=== PATIENT | female | born 1975 | race Caucasian/White ===

== ENCOUNTER 2018-02-18 08:47 | Emergency (ER) | payer OTHER ==
[~2018-02-18] VITALS: Ht 160 cm; Wt 86.2 kg
[2018-02-18 09:00] VITALS: BP 124/77
--- NOTE | 2018-02-18 09:05 | NUR ---
PT. CAME INTO THE ED DUE TO R HIP PAIN X 1 DAY. PT. STATES " YETERDAY I WAS SITTING ONMY BED FOR A WHILE AND WHEN I GOT UP TO WALK TO THE KITCHEN IT STARTED HURTING REALLY BAD, I DONT KNOW IF IT WAS MAYBE HOW I WAS SITTING". 10/ STABBING TINGLING PAIN THAT RADIATES FROM R HIP/ THIGH DOWN HER R LEG. PT. DENIES ANY INJURY OR FALL. NO BRUISING OR DEFORMITY NOTED TO R THIGH OR LEG. PT. HAS CANE PRESENT BUT HAS UNSTEADY GAIT UPON AMBULATION.CAP REFILL LESS THAN 3 SEC ON R TOE, SENSATION INTACT. ER MD NOTIFIED.SAFETY PRECAUTIONS INITIATED. AT BEDSIDE. WILL CONTINUE TO MONITOR.
[2018-02-18] MEDS ORDERED: IBUPROFEN 600 MG TAB PO ONE (09:30)
--- NOTE | 2018-02-18 09:36 | NUR ---
XRAY AT BEDSIDE AT THIS TIME.
--- NOTE | 2018-02-18 10:20 | NUR ---
PT. RESTING COMFORTABLY IN BED AT THIS TIME, RR EVEN AND UNLABORED. BED IN LOWEST POSITION. CALL LIGHT WITHIN REACH WILL CONTINUE TO MONITOR.
[2018-02-18 11:06] VITALS: BP 119/77
--- NOTE | 2018-02-18 11:06 | NUR ---
Patient discharged with v/s stable. Written and verbal after care instructions given and explained. Patient alert, oriented and verbalized understanding of instructions. Ambulatory with steady gait. All questions addressed prior to discharge. ID band removed. Patient advised to follow up with PMD. Rx of ibuprofen 600mg and gabapentin 100mg given.Pt. provided with cd and xray report. Patient educated on indication of medication including possible reaction and side effects. Opportunity to ask questions provided and answered.
== END 2018-02-18 11:04 | disposition home or self-care (01) ==
LOC: MED 08:47
DX: M25.551 Pain in right hip (principal); M79.651 Pain in right thigh; E11.9 Type 2 diabetes mellitus without complications
CPT/HCPCS: 73502; 82948; 99284; Q0092; 99285

== ENCOUNTER 2018-03-28 23:11 | Inpatient (IN) | payer OTHER ==
[~2018-03-28] VITALS: Ht 162.6 cm; Wt 85.3 kg
[2018-03-28 23:19] VITALS: BP 102/81
--- NOTE | 2018-03-28 23:19 | NUR ---
TO BED # 8 AMBULATORY, REPORT GIVEN TO JOSE DAVID MAST
--- NOTE | 2018-03-28 23:20 | NUR ---
PT PRESENTED ER WITH C/O PAIN TO THE RIGHT ARM DUE TO PICC LINE X 1 DAY. PT STATED SHE WAS ADMITTED TO [facility] FROM 03/03 - 03/27. PT HAS A HX OF LEUKEMIA AND BILATERAL HIP REPLACEMENTS. PT STATED HER LEUKEMIA IS OUT OF INTERMISSION AT THIS TIME. PT HAS BRUISING IN BILATERAL ARMS DUE TO LOW PLATELETS; UPON ASSESSMENT, NO REDNESS AND OR SWELLING TO PICC LINE SITE. NO DISCHARGE. SKIN IS PINK/WARM/DRY; AAOX4 WITH EVEN AND STEADY GAIT; PATIENT STATES PAIN OF 9/10 AT THIS TIME; VSS; PATIENT POSITIONED FOR COMFORT; HOB ELEVATED; BEDRAILS UP X2; BED DOWN. ER MD MADE AWARE OF PT STATUS.
--- NOTE | 2018-03-29 00:11 | NUR ---
Dr. Evans evaluating patient at bedside.
--- NOTE | 2018-03-29 01:05 | NUR ---
PT SITTING UP IN BED, SON AT BEDSIDE. VITALS STABLE
[2018-03-29 01:59] LABS: HEMATOCRIT 24.8 % (36-48); HEMOGLOBIN 8.5 g/dL (12.0-16.0); LYMPHOCYTES # (AUTO) 1.1 K/uL (2.5-16.5); MEAN CORPUSCULAR HEMOGLOBIN 30 pg (27-31); MEAN CORPUSCULAR HGB CONC 34 g/dL (33-37); MEAN CORPUSCULAR VOLUME 85.9 fL (80-94); MONOCYTES % (AUTO) 1.7 % (1.7-9.3); NEUTROPHILS # (AUTO) 0.6 K/uL (1.8-7.7); NEUTROPHILS % (AUTO) 33.2 % (42.2-75.2); PLATELET COUNT (AUTO) 84 K/uL (140-450); RED BLOOD CELL COUNT(AUTO) 2.89 MIL/uL (4.20-5.40); RED CELL DISTRIBUTION WIDTH 13.3 % (11.6-13.7)
[2018-03-29 02:01] LABS: ANION GAP 8.5 (8-16); CARBON DIOXIDE 25.2 mmol/L (21-32); CREATININE 0.9 mg/dL (0.6-1.3); POTASSIUM 3.7 mmol/L (3.5-5.1)
[2018-03-29 02:07] LABS: WHITE BLOOD COUNT (AUTO) 1.7 K/uL (4.8-10.8)
[2018-03-29 02:08] LABS: LYMPHOCYTES % (AUTO) 65.1 % (20.5-51.1)
--- NOTE | 2018-03-29 02:45 | NUR ---
Patient discharged with v/s stable. Written and verbal after care instructions given and explained. Patient verbalized understanding. Ambulatory with steady gait. All questions addressed prior to discharge. Advised to follow up with PMD.
--- NOTE | 2018-03-29 03:00 | NUR ---
PT CALLED BACK TO ER FOR ABNORMAL, OFFICIAL RADIOLOGIST REPORT. MD SAMANO NOTIFIED. PT RETURNED AT THIS TIME AND AMBULATED TO BED 8 W/ STEADY GAIT.
--- NOTE | 2018-03-29 03:02 | NUR ---
Dr. Evans re-evaluating patient at bedside.
[2018-03-29] MEDS ORDERED: MORPHINE SULFATE 4 MG/ML SYR IVP ONE (03:40)
[2018-03-29] MEDS ORDERED: ONDANSETRON 4 MG/2 ML VIAL IVP ONE (03:40)
--- NOTE | 2018-03-29 03:40 | NUR ---
PT REQUESTING SOMETHING FOR PAIN, LEVEL 10/10. MD MADE AWARE OF STATUS.
[2018-03-29] MEDS ORDERED: LOVENOX 1MG/KG Q12H SUBQ SCH (04:45)
[2018-03-29] MEDS ORDERED: ACYC400T PO (04:46)
[2018-03-29] MEDS ORDERED: ATOR10TA PO (04:54)
[2018-03-29] MEDS ORDERED: INSU100S22 SUBQ (05:04)
[2018-03-29] MEDS ORDERED: GABA-636 PO (05:04)
[2018-03-29] MEDS ORDERED: INSU-1163 SQ (05:04)
[2018-03-29] MEDS ORDERED: LISI2.5T12 PO (05:11)
[2018-03-29] MEDS ORDERED: MEDR10TA PO (05:11)
[2018-03-29] MEDS ORDERED: PANT40EC PO (05:11)
[2018-03-29] MEDS ORDERED: PRED20TA5 PO (05:11)
[2018-03-29] MEDS ORDERED: HUMSLIDE SUBQ (05:18)
--- NOTE | 2018-03-29 05:30 | NUR ---
ADMITTED PT FROM ER VIA WHEELCHAIR. DX: DVT RIGHT UPPER ARM. AAOX4. NO C/O PAIN OR SOB. ON ROOM AIR. CLEAR LUNG SOUNDS. SKIN INTACT. IV TO LEFT AC #20G, PATENT AND INTACT. ORIENTED PT TO ROOM. DISCUSSED PLAN OF CARE, PT VERBALIZED UNDERSTANDING. PT IS ON NEUTROPENIC PRECAUTION.
--- NOTE | 2018-03-29 05:30 | NUR ---
PICC LINE REMOVED PER ER MD, TOLERATED WELL.
--- NOTE | 2018-03-29 05:35 | NUR ---
Patient will be admitted to care of DR. PETERSEN. Admited to MEDICAL SURGICAL. Will go to room. Belongings list completed. Report to ROBBIE MAST.
--- NOTE | 2018-03-29 05:35 | NUR ---
Pt report given to ROBBIE MAST. Transfer of care at this time. VITALS STABLE.
[2018-03-29 05:40] VITALS: BP 106/68
--- NOTE | 2018-03-29 05:40 | NUR ---
ER NURSE REMOVED PT'S PICC LINE TO RIGHT UPPER ARM. DRESSING APPLIED TO IV SITE. PT DENIES PAIN OR SOB.
--- NOTE | 2018-03-29 06:00 | NUR ---
MST CHARGE NURSE SPOKE WITH ER CHARGE NURSE. PER ER CHARGE NURSE, ER DOCTOR CANCELLED LOVENOX.
--- NOTE | 2018-03-29 07:25 | NUR ---
ENDORSED PT TO DAY SHIFT NURSE. PT IN STABLE CONDITION.
--- NOTE | 2018-03-29 07:26 | NUR ---
RECEIVED REPORT FROM MANAGER DEPARTMENT NURSE. PATIENT LYING IN BED COMFORTABLY. NO DISTRESS NOTED. PAIN WITHIN TOLERABLE AT THIS TIME. AAOX4, CALM, COOPERATIVE, SKIN COLOR APPROPRIATE TO ETHNICITY, WARM TO TOUCH. SKIN INTACT. HAS RIGHT UPPER ARM AXILLARY DVT, ARM HAS NON-PITTING EDEMA AND INCREASED WARMTH UPON TOUCH. IV SITE INTACT, PATENT, ON SALINE LOCK. ABDOMEN SOFT, NON-DISTENDED. REVIEWED PLAN OF CARE WITH PATIENT. PATIENT VERBALIZED UNDERSTANDING. SAFETY MEASURES IN PLACE, CALL LIGHT WITHIN REACH. WILL CONTINUE TO MONITOR.
[2018-03-29 08:00] VITALS: BP 125/72
--- NOTE | 2018-03-29 08:11 | NUR ---
PATIENT HAS BEEN SCREENED AND CATEGORIZED MODERATE NUTRITION RISK. PATIENT WILL BE SEEN WITHIN 3-5 DAYS OF ADMISSION. 03/31/18 04/02/[address]
--- NOTE | 2018-03-29 09:30 | NUR ---
PATIENT SITTING IN BED WATCHING TV. DR. PETERSEN AT BEDSIDE REVIEWING PLAN OF CARE WITH PATIENT. WILL CONTINUE TO MONITOR.
[2018-03-29] MEDS ORDERED: INSULIN LISPRO SLIDING SCALE 100 UNITS/ML VIAL SUBQ PRN (10:20)
[2018-03-29] MEDS ORDERED: DEXTROSE 50% 50 ML SYR IVP PRN (10:20)
[2018-03-29] MEDS ORDERED: APIX5TAB PO (10:27)
[2018-03-29] MEDS ORDERED: BLOOD GLUCOSE MONITORING 1 DEV DEV FS SCH (11:30)
--- NOTE | 2018-03-29 11:35 | NUR ---
I RECEIVED A CALL THIS AM FROM ADITI MAST. SHE WAS ASKED BY DR. PETERSEN IF WE HAD DISCOUNT COUPON FOR ELIQUIS PO. THE PATIENT HAS [facility]. I CALL [facility] , [phone] AND SPOKE WITH MAIRSELA. HE LOOKED UP THE PATIENT AND HE SAID ELIQUIS IS COVERED, NO CO PAY. THE DOCTOR NEEDS TO WRITE ON THE PRESCRIPTION THE REASON FOR THE MEDICATION, ONLY FOR DVT OR PE. I WENT THE FLOOR AND SPOKE WITH DR. PETERSEN AND INFORMED HIM. ADMISSION CHART REVIEW DONE FAXED INITIAL REVIEW TO [facility] [phone] PHONE JOSH [phone].
--- NOTE | 2018-03-29 12:30 | NUR ---
DISCHARGE INSTRUCTIONS PROVIDED TO PATIENT IN PREFERRED LANGUAGE OF TONGAN, FOLLOW-UP VISIT WITH PCP AND ONCOLOGIST, NEW/CHANGED MEDICATION REGIMEN, DIET REGIMEN, AND DISEASE PROCESS/MANAGEMENT OF DVT. ANSWERED ALL OF PATIENT'S QUESTIONS REGARDING DISCHARGE. PATIENT VERBALIZED COMPLETE UNDERSTANDING. PATIENT TO GET DRESSED AND THEN READY TO GO HOME VIA SELF DRIVE.
--- NOTE | 2018-03-29 12:45 | NUR ---
PATIENT SITTING IN BED EATING LUNCH BEFORE GOING HOME. WILL CONTINUE TO MONITOR.
[2018-03-29] MEDS ORDERED: GABAPENTIN 100 MG CAP PO SCH (13:00)
--- NOTE | 2018-03-29 13:00 | NUR ---
PATIENT ALL DRESSED UP AND READY TO GO HOME. IV SITE REMOVED WITH MINIMAL BLOOD AND LUMEN COMPLETELY INTACT. ID BANDS REMOVED. ESCORTED PATIENT DOWN TO LOBBY VIA AMBULATION. PATIENT DISCHARGED AT THIS TIME IN STABLE CONDITION TO HOME VIA SELF DRIVE.
[2018-03-29] MEDS ORDERED: PANTOPRAZOLE 40 MG TABEC PO SCH (16:30)
[2018-03-29] MEDS ORDERED: ACYCLOVIR 200 MG CAP PO SCH (21:00)
[2018-03-29] MEDS ORDERED: APIXABAN 2.5 MG TAB PO SCH (21:00)
[2018-03-30] MEDS ORDERED: predniSONE 20 MG TAB PO SCH (09:00)
[2018-03-30] MEDS ORDERED: LISINOPRIL 5 MG TAB PO SCH (09:00)
[2018-03-30] MEDS ORDERED: ATORVASTATIN 20 MG TAB PO SCH (09:00)
[2018-03-30] MEDS ORDERED: LISINOPRIL 10 MG TAB PO SCH (09:00)
== END 2018-03-29 13:00 | disposition home or self-care (01) | DRG 206 ==
LOC: MED 23:11 → MTU 03-29 04:48
PROVIDERS: ADMIT Internal Medicine; ATTEND Internal Medicine
PROC: 02PYX3Z Removal of Infusion Device from Great Vessel, External Approach (ICD-10-PCS; principal; 2018-03-29)
DX: T82.868A Thrombosis due to vascular prosthetic devices, implants and grafts, initial encounter (principal); D61.818 Other pancytopenia; I82.A11 Acute embolism and thrombosis of right axillary vein; E87.1 Hypo-osmolality and hyponatremia; Z96.643 Presence of artificial hip joint, bilateral; G89.29 Other chronic pain; E11.65 Type 2 diabetes mellitus with hyperglycemia; Y83.8 Other surgical procedures as the cause of abnormal reaction of the patient, or of later complication, without mention of misadventure at the time of the procedure; Z79.4 Long term (current) use of insulin; Z79.899 Other long term (current) drug therapy; Z92.21 Personal history of antineoplastic chemotherapy; Z85.6 Personal history of leukemia; Y92.89 Other specified places as the place of occurrence of the external cause
CPT/HCPCS: 36415; 80048; 82948; 85025; 93971; 96374; 96375; 99284; 99285; J2270; J2405; Q0092

== ENCOUNTER 2018-03-29 22:39 | Emergency (ER) | payer OTHER ==
[~2018-03-29] VITALS: Ht 162.6 cm; Wt 85.7 kg
[~2018-03-29 22:39] MED LIST: ACYC400T PO; APIX5TAB PO; ATOR10TA PO; GABA-636 PO; HUMSLIDE SUBQ; INSU-1163 SQ; INSU100S22 SUBQ; LISI2.5T12 PO; MEDR10TA PO; PANT40EC PO; PRED20TA5 PO
[2018-03-29 22:43] VITALS: BP 116/70
--- NOTE | 2018-03-29 22:43 | NUR ---
TO BED # 11 AMBULATORY, REPORT GIVEN TO MAXWELL MAST
--- NOTE | 2018-03-29 23:00 | NUR ---
42/F CAME IN WITH FAMILY FOR MEDICATION SUBSTITUTION. PT WAS D/C'ED TODAY FOR R ARM DVT, REPORTS R UPPER ARM PICC LINE WAS ALSO REMOVED. PT WAS GIVEN RX ELIQUIS 5MG PO BID BUT PT COULD NOT POULTRY FARMWORKER RX BECAUSE HER INSURANCE DOES NOT COVER THE RX. PT DENIES CP, SOB, N/V. PT AOX4, AMBULATORY, RR EVEN AND UNLABORED. HX LEUKEMIA IN REMISSION, DM, BL HIP REPLACEMENT.
[2018-03-29] MEDS ORDERED: APIXABAN 2.5 MG TAB PO SCH (23:20)
--- NOTE | 2018-03-29 23:26 | NUR ---
AWAITING D/C PAPERWORK FROM RASHEEDA GOMEZ
--- NOTE | 2018-03-29 23:30 | NUR ---
ELIQUIS NOT AVAILABLE FROM [facility], CALLED [facility]
--- NOTE | 2018-03-29 23:46 | NUR ---
PER PERSONAL BANKING ADVISOR, DAMON NOT AVAILABLE FROM HOSPITAL. ER MADE AWARE.
[2018-03-30] MEDS ORDERED: RIVAROXABAN 15 MG TAB PO ONE (00:25)
--- NOTE | 2018-03-30 00:50 | NUR ---
PER BRACE END MAINSPRING FORMER, LEELA NOT AVAILABLE IN HOSPITAL. ON-CALL PHARMACIST ON THE WAY. ER MADE AWARE.
[2018-03-30 01:30] VITALS: BP 121/67
--- NOTE | 2018-03-30 01:30 | NUR ---
Patient discharged with v/s stable. Written and verbal after care instructions given and explained. Patient alert, oriented and verbalized understanding of instructions. Ambulatory with steady gait. All questions addressed prior to discharge. ID band removed. Patient advised to follow up with PMD. Rx of Xarelto given. Patient educated on indication of medication including possible reaction and side effects. Opportunity to ask questions provided and answered.
== END 2018-03-30 01:30 | disposition home or self-care (01) ==
LOC: MED 22:39
DX: E11.9 Type 2 diabetes mellitus without complications (principal); Z76.0 Encounter for issue of repeat prescription; Z79.899 Other long term (current) drug therapy
CPT/HCPCS: 99283

== ENCOUNTER 2019-02-04 19:47 | Inpatient (IN) | payer MEDICAID, OTHER ==
[~2019-02-04] VITALS: Ht 157.5 cm; Wt 78.9 kg
[2019-02-04 19:50] VITALS: BP 123/68
--- NOTE | 2019-02-04 19:50 | NUR ---
TO BED # 01 AMBULATORY
[2019-02-04] MEDS ORDERED: NACL 0.9% 1,000 ML IV ONE (20:00)
--- NOTE | 2019-02-04 20:00 | NUR ---
43 Y/O FEMALE PRESENTS TO ED, C/O VAGINAL BLEEDING. PT STATES SHE HAS INCREASED VAGINAL BLEEDING THIS MORNING. BLEEDING HAS BEEN ON GOING FOR THE SEVERAL WEEKS BUT INCREASED TODAY, SATURATES WITH BLOOD 1 PAD/HR. PT STATES SHE HAS AN APPT WITH PCP ON NEXT THURSDAY BUT WAS ADVISED TO GO TO ED IF BLEEDING WORSENS. PT HAS HX OF LEUKEMIA CURRENTLY ON REMISSION. PT VSS. ERMD AWARE. WILL CONTINUE TO MONITOR.
[2019-02-04 20:57] LABS: BASOPHILS % (AUTO) 0.1 % (0.0-2.0); EOSINOPHILS % (AUTO) 0.3 % (0.0-4.0); LYMPHOCYTES # (AUTO) 1.8 K/uL (2.5-16.5); LYMPHOCYTES % (AUTO) 17.1 % (20.5-51.1); MEAN CORPUSCULAR HEMOGLOBIN 35 pg (27-31); MEAN CORPUSCULAR HGB CONC 34 g/dL (33-37); MEAN CORPUSCULAR VOLUME 102.5 fL (80-94); MONOCYTES # (AUTO) 0.7 K/uL (0.8-1.0); MONOCYTES % (AUTO) 6.9 % (1.7-9.3); NEUTROPHILS # (AUTO) 7.8 K/uL (1.8-7.7); NEUTROPHILS % (AUTO) 75.6 % (42.2-75.2); PLATELET COUNT (AUTO) 152 K/uL (140-450); RED CELL DISTRIBUTION WIDTH 16.1 % (11.6-13.7); WHITE BLOOD COUNT (AUTO) 10.3 K/uL (4.8-10.8)
[2019-02-04 21:04] LABS: HEMATOCRIT 17.4 % (36-48); HEMOGLOBIN 5.9 g/dL (12.0-16.0)
[2019-02-04 21:23] LABS: ALBUMIN 2.6 g/dL (3.4-5.0); ANION GAP 14.1 (8-16); CARBON DIOXIDE 22.1 mmol/L (21-32); CREATININE 0.8 mg/dL (0.6-1.3); POTASSIUM 4.2 mmol/L (3.5-5.1); TOTAL BILIRUBIN 0.8 mg/dL (0.0-1.0)
[2019-02-04 21:41] LABS: PROTHROMBIN TIME 9.2 secs (10.8-13.4)
[2019-02-04] MEDS ORDERED: INSULIN REGULAR, HUMAN 100 UNIT/ML VIAL IVP ONE (21:50)
--- NOTE | 2019-02-04 21:51 | NUR ---
PT AWAKE, LAYING ON BED. AT BESIDE. PT C/O LETHARGY. PT PRESENTS PALE. VSS. ERMD AWARE. WILL CONTINUE TO MONITOR.
[2019-02-04] MEDS ORDERED: diphenhydrAMINE 50 MG/ML VIAL IVP ONE (22:05)
[2019-02-04] MEDS ORDERED: DOCUSATE SODIUM 100 MG GELCAP PO PRN (22:50)
[2019-02-04] MEDS ORDERED: ONDANSETRON 4 MG/2 ML VIAL IM/IVP PRN (22:50)
[2019-02-04] MEDS ORDERED: LORazepam 2 MG/ML VIAL IM/IVP PRN (22:50)
[2019-02-04] MEDS ORDERED: FAMOTIDINE 20 MG/2 ML VIAL IV PRN (22:50)
--- NOTE | 2019-02-04 23:10 | NUR ---
RECEIVED REPORT FROM ED RN FOR PATIENT'S CONTINUITY OF CARE. PATIENT IS AWAKE, ALERT, ORIENTED X 4, IS ON ROOM AIR, HAS LEFT AC 20G SALINE LOCK IV, IS AMBULATORY, AND DENIES PAIN AT THIS TIME. EXPLAINED TO PATIENT THE LIEUTENANT GOVERNOR ROUTINE. SIDE RAILS ARE UP, BED IS ON LOW POSITION, AND CALL LIGHT IS WITHIN REACH. WILL MONITOR PATIENT THROUGHOUT SHIFT. PLAN IS TO START BLOOD TRANSFUSION, WILL CARRY OUT ORDER AND PLAN OF CARE.
--- NOTE | 2019-02-04 23:25 | NUR ---
PT ADMITTED TO MS ROOM 119A. PT TRANSFERRED VIA GURNEY. REPORT GIVEN TO OSKAR MAST. PT STABLE. PT CARE TRANSFERRED.
[2019-02-04 23:39] LABS: ANION GAP 12.1 (8-16); CARBON DIOXIDE 23.7 mmol/L (21-32); CREATININE 0.7 mg/dL (0.6-1.3); POTASSIUM 3.8 mmol/L (3.5-5.1)
[2019-02-05] VITALS: BP 106/61
[2019-02-05 00:05] LABS: CHOL/HDL RATIO 8.2 (1-4.5); MAGNESIUM 1.8 mg/dL (1.8-2.4); PHOSPHORUS 2.2 mg/dL (2.5-4.9); THYROID STIMULATING HORMONE 5.01 uIU/mL (0.34-3.74)
[2019-02-05] MEDS ORDERED: traMADol 50 MG TAB PO PRN (00:15)
[2019-02-05] MEDS ORDERED: ONDANSETRON 4 MG/2 ML VIAL IVP PRN ×2 (00:15→13:00)
[2019-02-05] MEDS ORDERED: [UNRECOGNIZED DRUG - CODE] PO (00:28)
[2019-02-05] MEDS ORDERED: [UNRECOGNIZED DRUG - CODE] TP (00:28)
[2019-02-05] MEDS ORDERED: ACYC400T PO (00:28)
[2019-02-05] MEDS ORDERED: SULF-59 PO (00:28)
[2019-02-05] MEDS ORDERED: ELTR25TA PO (00:28)
[2019-02-05] MEDS ORDERED: PANT40EC PO (00:28)
[2019-02-05] MEDS ORDERED: TRAM50TA1 PO (00:28)
[2019-02-05] MEDS ORDERED: LETE480T PO (00:28)
[2019-02-05] MEDS ORDERED: INSU100S22 SUBQ (00:28)
[2019-02-05] MEDS ORDERED: POTA8TER12 PO (00:28)
[2019-02-05] MEDS ORDERED: ONDA8TAB PO (00:28)
[2019-02-05] MEDS ORDERED: PRO.5 PO (00:28)
[2019-02-05] MEDS ORDERED: [UNRECOGNIZED DRUG - CODE] PO ×2 (00:28→00:40)
[2019-02-05] MEDS ORDERED: BEN50 PO (00:28)
[2019-02-05] MEDS ORDERED: INSU-1163 SQ (00:40)
[2019-02-05 00:46] LABS: APPEARANCE,URINE HAZY (CLEAR); BILIRUBIN,URINE NEGATIVE (NEGATIVE); BLOOD, URINE 3+ (NEGATIVE); LEUKOCYTE ESTERASE ,URINE NEGATIVE (NEGATIVE); NITRITE, URINE NEGATIVE (NEGATIVE); UGLUCOSE 3+ (NEGATIVE)
[2019-02-05 00:51] LABS: COLOR,URINE SLIGHT BLOODY (YELLOW)
[2019-02-05 00:52] LABS: BARBITURATE, URINE NEG. ng/ml (NEG <=200); BENZODIAZEPINE, URINE NEG. ng/mL (NEG <=200); CANNABINOID, URINE NEG. ng/mL (NEG <=50); COCAINE, URINE NEG. ng/mL (NEG <=300); OPIATE, URINE NEG. ng/mL (NEG <=2000); PHENCYCLIDINE SCREEN,URINE NEG. ng/mL (NEG <=25)
[2019-02-05 00:55] LABS: RBC,URINE TOO NUMEROUS TO COUN /HPF (0-5); WBC,URINE 0-5 /HPF (0-5)
[2019-02-05] MEDS ORDERED: ACYCLOVIR 800 MG TAB PO SCH (01:00)
[2019-02-05] MEDS ORDERED: HYDROCORTISONE 2.5% CRM 30 GM TUBE TP SCH (01:00)
[2019-02-05] MEDS ORDERED: MEDICATION REC. PHARMACY CONS. 1 EA MISC MC PRN (01:05)
[2019-02-05] MEDS ORDERED: INSULIN LANTUS 100 UNITS/ML 10 ML VIAL SUBQ SCH (01:15)
[2019-02-05] MEDS ORDERED: GLUCAGON 1 MG VIAL IVP PRN (01:20)
[2019-02-05] MEDS ORDERED: DEXTROSE 50% 50 ML SYR IVP PRN (01:20)
[2019-02-05] MEDS ORDERED: NACL 0.9% 1,000 ML IV ONE ×2 (02:10→05:05)
--- NOTE | 2019-02-05 03:35 | NUR ---
BLOOD TRANSFUSION STARTED, VERIFIED WITH CAREER COUNSELOR YOON. PRE-TRANSFUSION VS: Y 99.2, BP 94/48, P 116, RR 16, O2 96%, DENIES PAIN. PREMEDICATED PATIENT WITH ACETAMINOPHEN PO AND IV PUSH DIPHENHYDRAMINE ORDERED. WILL INITIATE BLOOD TRANSFUSION PROTOCOL.
[2019-02-05] MEDS: diphenhydrAMINE 50 MG/ML VIAL IVP PRN ×3 (03:38→16:47)
[2019-02-05] MEDS: ACETAMINOPHEN 325 MG TAB PO PRN ×3 (03:38→16:47)
[2019-02-05] MEDS: HYDROcodone/APAP 7.5/325 MG 1 TAB PO PRN ×2 (04:00→10:36)
--- NOTE | 2019-02-05 04:00 | NUR ---
PATIENT C/O PAIN ON IV SITE DURING BLOOD TRANSFUSION. ADMINISTERED PO PAIN MEDICATION ORDERED. WILL CONTINUE TO MONITOR PATIENT.
[2019-02-05] MEDS: PANTOPRAZOLE 40 MG TABEC PO SCH (05:53)
[2019-02-05] MEDS: GABAPENTIN 100 MG CAP PO SCH ×4 (05:53→21:14)
--- NOTE | 2019-02-05 05:53 | NUR ---
ADMINISTERED SCHEDULED PO MEDICATIONS ORDERED. PATIENT TOLERATED THEM WELL. ONGOING BLOOD TRANSFUSION. PATIENT DENIES PAIN AT THIS TIME. WILL CONTINUE TO MONITOR PATIENT.
--- NOTE | 2019-02-05 06:35 | NUR ---
BLOOD TRANSFUSION ENDED. WILL ENDORSE TO AM SHIFT RN TO TRANSFUSE 2ND UNIT OF BLOOD, AND FOR PATIENT'S CONTINUITY OF CARE. PATIENT IS LYING DOWN, RESTING, WITH NO C/O PAIN.
[2019-02-05] MEDS: BLOOD GLUCOSE MONITORING 1 DEV DEV FS SCH ×4 (06:39→21:15)
[2019-02-05] MEDS: INSULIN LISPRO SLIDING SCALE 100 UNITS/ML VIAL SUBQ PRN ×2 (06:41→21:21)
--- NOTE | 2019-02-05 07:20 | NUR ---
RECEIVED REPORT FROM BEVELLER OPERATOR NURSE AT BEDSIDE FOR PATIENT'S CONTINUITY OF CARE. PATIENT IS AWAKE, ALERT, ORIENTED X 4, IS ON ROOM AIR, HAS LEFT AC 20G INTACT, ASYMPTOMATIC, IS AMBULATORY, AND DENIES PAIN AT THIS TIME. EXPLAINED TO PATIENT PLAN OF CARE, SHE VERBALIZED UNDERSTANDING. UPDATED BOARD. SIDE RAILS ARE UP, BED IS ON LOW POSITION, AND CALL LIGHT IS WITHIN REACH. WILL MONITOR PATIENT THROUGHOUT SHIFT.
[2019-02-05 08:00] VITALS: BP 105/57
--- NOTE | 2019-02-05 08:16 | NUR ---
PATIENT HAS BEEN SCREENED AND CATEGORIZED MODERATE NUTRITION RISK. PATIENT WILL BE SEEN WITHIN 3-5 DAYS OF ADMISSION. 02/07/19-02/09/[address] Addendum: 02/05/19 at [address] PATIENT HAS BEEN RESCREENED AND RECATEGORIZED MODERATE NUTRITION RISK. PATIENT WILL BE SEEN WITHIN 3-5 DAYS OF ADMISSION. 02/05/19-02/06/19 Addendum: 02/05/19 at [address] PATIENT HAS BEEN RESCREENED AND RECATEGORIZED HIGH NUTRITION RISK. PATIENT WILL BE SEEN WITHIN 1-2 DAYS OF ADMISSION. 02/05/19-02/06/19
[2019-02-05] MEDS: ATORVASTATIN 20 MG TAB PO SCH (08:29)
[2019-02-05] MEDS: TACROLIMUS 0.5 MG CAP PO SCH ×2 (08:29→21:15)
[2019-02-05] MEDS: ACYCLOVIR 800 MG TAB PO SCH ×2 (08:29→21:14)
--- NOTE | 2019-02-05 08:30 | NUR ---
ORDERED MEDICATIONS GIVEN. PATIENT TOLERATING IT WELL. NO COMPLAINTS AT THIS TIME. CONSENT FOR HYSTEROCOPY AND D&C OBTAINED. DR. PHILIP AT BEDSIDE TO SPEAK TO PATIENT ABOUT PROCEDURE. DR AUSTIN STATED TO HOLD 2ND UNIT OF PRBC UNTIL AFTER BLOOD DRAW, INFORMED DR. PHILIP, HE STATED THAT HE STILL WANTED 2ND UNIT OF PRBC INFUSING, HE STATED HE WILL SPEAK TO DR AUSTIN. DR AUSTIN NOW WANTS 2ND BLOOD OF PRBC INFUSED. WILL CONTINUE TO MONITOR PATIENT AND FOLLOW MD ORDERS DIRECTED.
[2019-02-05] MEDS ORDERED: SULFAMETH/TRIMETH DS 800/160MG 1 TAB PO SCH (09:00)
[2019-02-05] MEDS ORDERED: NORETHINDRONE ETHINYL ESTRAD PO SCH (09:00)
[2019-02-05] MEDS ORDERED: MAGNESIUM OXIDE PO SCH (09:00)
[2019-02-05] MEDS ORDERED: LETERMOVIR 480 MG PO SCH (09:00)
[2019-02-05] MEDS ORDERED: ELTROMBOPAG OLAMINE 50 MG PO SCH (09:00)
[2019-02-05] MEDS ORDERED: MAG AA CHELATE PO SCH (09:00)
[2019-02-05] MEDS ORDERED: GEMFIBROZIL 600 MG TAB PO SCH ×2 (09:30→16:30)
[2019-02-05] MEDS: HYDROCORTISONE 2.5% CRM 30 GM TUBE TP SCH ×2 (09:50→21:15)
[2019-02-05] MEDS: POTASSIUM CHLORIDE 8 MEQ TABER PO SCH ×3 (09:50→16:47)
--- NOTE | 2019-02-05 09:52 | NUR ---
ORDERED MEDICATIONS GIVEN. PATIENT TOLERATING IT WELL. NO COMPLAINTS AT THIS TIME. PRBC STILL INFUSING WELL, NO COMPLAINT OF PAIN AT SITE. NO S/S OF REACTION NOTED. PATIENT NOW RESTING WITH EYES CLOSED. WILL CONTINUE TO MONITOR PATIENT.
--- NOTE | 2019-02-05 10:15 | NUR ---
JAI ALAI PLAYER ADITI CALLED, PROCEDURE POSTPONED. INFORMED PATIENT AND AT BEDSIDE. BLOOD STILL INFUSING WELL. NO COMPLAINTS AT THIS TIME. WILL CONTINUE TO MONITOR PATIENT.
--- NOTE | 2019-02-05 11:20 | NUR ---
MANUFACTURING ENGINEER ASSEMBLY ADITI CALLED, PROCEDURE WILL BE AT 1215. GARAGE MANAGER CALLED, UPDATED HER ON PATIENT'S STATUS AND CONDITION. OR CHECKLIST DONE. INFORMED PATIENT AND AT BEDSIDE. BLOOD STILL INFUSING WELL. NO COMPLAINTS AT THIS TIME. WILL CONTINUE TO MONITOR PATIENT.
--- NOTE | 2019-02-05 12:15 | NUR ---
PATIENT WHEELED OFF FLOOR WITH 2 PICKLING MACHINE OPERATOR TO GO TO PROCEDURE WITH DR. PHILIP. PATIENT IN STABLE CONDITION.
[2019-02-05] MEDS ORDERED: SEVOFLURANE 250 ML BTL INH ONE (12:20)
[2019-02-05] MEDS ORDERED: LIDOCAINE 2% 100 MG/5 ML SYR IVP ONE (12:20)
[2019-02-05] MEDS ORDERED: PROPOFOL 200 MG/20 ML VIAL IV ONE (12:20)
[2019-02-05] MEDS ORDERED: MIDAZOLAM 2 MG/2 ML VIAL ONE (12:42)
[2019-02-05] MEDS ORDERED: HYDROmorphone 1 MG/ML AMP IVP PRN (12:50)
--- NOTE | 2019-02-05 14:25 | NUR ---
PATIENT RETURNED TO FLOOR. VS WNL. CALLED PATIENT'S AND UPDATED HIM WITH PATIENT BEING BACK IN ROOM. PATIENT RESTING IN BED WITH EYES CLOSED, NO COMPLAINTS AT THIS TIME. SAFETY PRECAUTIONS IN PLACE, CALL LIGHT WITHIN REACH, WILL CONTINUE MONITOR PATIENT.
--- NOTE | 2019-02-05 14:42 | NUR ---
02/05/19 RD INITIAL ASSESSMENT COMPLETED PLEASE REFER TO NUTRITION ASSESSMENT UNDER CARE ACTIVITY FOR ESTIMATED NUTRITIONAL NEEDS. RD RECOMMENDATIONS: 1. CONSIDER CCHO 60 GM DIET WHEN MEDICALLY APPROPRIATE. 2. DM DIET EDUCATION WAS LEFT BY PT�S BEDSIDE, WILL F/U DURING NEXT VISIT. 3. RD WILL F/U 2-3 DAYS; HIGH RISK. CARMELO TORRES, RD
[2019-02-05 15:02] LABS: BASOPHILS % (AUTO) 0.3 % (0.0-2.0); HEMATOCRIT 20.8 % (36-48); MONOCYTES # (AUTO) 0.4 K/uL (0.8-1.0); WHITE BLOOD COUNT (AUTO) 5.4 K/uL (4.8-10.8)
[2019-02-05 15:06] LABS: EOSINOPHILS % (AUTO) 0.7 % (0.0-4.0); LYMPHOCYTES # (AUTO) 0.8 K/uL (2.5-16.5); LYMPHOCYTES % (AUTO) 14.4 % (20.5-51.1); MEAN CORPUSCULAR HEMOGLOBIN 32 pg (27-31); MEAN CORPUSCULAR HGB CONC 33 g/dL (33-37); MEAN CORPUSCULAR VOLUME 94.5 fL (80-94); MONOCYTES % (AUTO) 7.2 % (1.7-9.3); NEUTROPHILS # (AUTO) 4.2 K/uL (1.8-7.7); NEUTROPHILS % (AUTO) 77.4 % (42.2-75.2); PLATELET COUNT (AUTO) 75 K/uL (140-450); RED CELL DISTRIBUTION WIDTH 18.1 % (11.6-13.7)
[2019-02-05 15:09] LABS: HEMOGLOBIN 6.9 g/dL (12.0-16.0)
--- NOTE | 2019-02-05 15:20 | NUR ---
LAB CALLED, PATIENT'S HGB 6.9, INFORMED DR. AUSTIN. NEW ORDERS IN. WILL CONTINUE TO MONITOR PATIENT.
[2019-02-05 15:22] LABS: CARBON DIOXIDE 24.2 mmol/L (21-32); CREATININE 0.5 mg/dL (0.6-1.3); POTASSIUM 4.2 mmol/L (3.5-5.1)
[2019-02-05 15:24] LABS: MAGNESIUM 1.8 mg/dL (1.8-2.4); PHOSPHORUS 3.2 mg/dL (2.5-4.9)
[2019-02-05 16:00] VITALS: BP 114/58
--- NOTE | 2019-02-05 16:50 | NUR ---
UNIT OF PRBC STARTED. PATIENT TOLERATING IT. PATIENT PREMEDICATED WITH TYLENOL AND BENADRYL PER REQUEST. ORDERED MEDICATIONS GIVEN. PATIENT TOLERATED THEM. NO COMPLAINTS AT THIS TIME. WILL CONTINUE TO MONITOR PATIENT.
--- NOTE | 2019-02-05 17:18 | NUR ---
DR PHILIP IN TO SPEAK WITH THE PATIENT. WILL WAIT FOR RESULTS OR NEW ORDERS.
--- NOTE | 2019-02-05 17:45 | NUR ---
CALLED DIETARY FOR TRAY FOR PATIENT. BLOOD INFUSING WELL. NO COMPLAINTS AT THIS TIME. WILL CONTINUE TO MONITOR PATIENT.
--- NOTE | 2019-02-05 19:33 | NUR ---
REPORT GIVEN TO YARDING AND FOLDING MACHINE OPERATOR NURSE AT BEDSIDE FOR CONTINUITY OF CARE. PATIENT IN STABLE CONDITION.
--- NOTE | 2019-02-05 19:35 | NUR ---
ASSUMED CARE OF PATIENT AT THIS TIME. RECEIVED REPORT FROM PRO SANTIAGO AT THIS TIME. PATIENT IS AAOX4, ON ROOM AIR. PATIENT IS ABLE TO FOLLOW COMMANDS, AND ABLE TO MAKE NEEDS KNOWN. PATIENT IS AMBULATORY AND IS ABLE TO REPOSITION SELF IN BED. ENCOURAGE Q2H REPOSITIONING. PT SKIN IS INTACT. PT HAS A 20G IV TO LEFT WRIST INFUSING BLOOD AT THIS TIME. VITAL SIGNS ARE STABLE. DENIES HAVING ANY PAIN AT THIS TIME. ORIENTED PT TO ROOM AND SAFETY. BED IN LOWEST POSITION, CALL LIGHT WITHIN REACH. WILL CONTINUE TO MONITOR.
[2019-02-05 20:00] VITALS: BP 114/57
[2019-02-05] MEDS: INSULIN LANTUS 100 UNITS/ML 10 ML VIAL SUBQ SCH (21:21)
--- NOTE | 2019-02-05 21:22 | NUR ---
HELPED PATIENT AMBULATE TO RESTROOM AND BACK TO BED. EDUCATED ABOUT MEDICATIONS AND ADMINISTERED THEM SCHEDULED. PT TOLERATED WELL. BED LEFT IN LOWEST POSITION, CALL LIGHT WITHIN REACH. WILL CONTINUE TO MONITOR.
[2019-02-06] VITALS: BP 104/54
--- NOTE | 2019-02-06 | NUR ---
VITAL SIGNS ARE STABLE. DENIES HAVING ANY PAIN AT THIS TIME. ORIENTED PT TO ROOM AND SAFETY. BED IN LOWEST POSITION, CALL LIGHT WITHIN REACH. WILL CONTINUE TO MONITOR.
[2019-02-06 00:21] LABS: BASOPHILS % (AUTO) 0.3 % (0.0-2.0); EOSINOPHILS # (AUTO) 0.1 K/uL (0-0.4); EOSINOPHILS % (AUTO) 0.9 % (0.0-4.0); HEMATOCRIT 24.4 % (36-48); HEMOGLOBIN 8.1 g/dL (12.0-16.0); LYMPHOCYTES # (AUTO) 0.8 K/uL (2.5-16.5); LYMPHOCYTES % (AUTO) 10.9 % (20.5-51.1); MEAN CORPUSCULAR HEMOGLOBIN 32 pg (27-31); MEAN CORPUSCULAR HGB CONC 33 g/dL (33-37); MEAN CORPUSCULAR VOLUME 94.5 fL (80-94); MONOCYTES # (AUTO) 0.5 K/uL (0.8-1.0); MONOCYTES % (AUTO) 6.9 % (1.7-9.3); NEUTROPHILS # (AUTO) 5.6 K/uL (1.8-7.7); PLATELET COUNT (AUTO) 75 K/uL (140-450); RED BLOOD CELL COUNT(AUTO) 2.58 MIL/uL (4.20-5.40); RED CELL DISTRIBUTION WIDTH 17.4 % (11.6-13.7); WHITE BLOOD COUNT (AUTO) 6.9 K/uL (4.8-10.8)
--- NOTE | 2019-02-06 02:08 | NUR ---
HELPED PATIENT TO RESTROOM AND BACK TO BED. DENIES HAVING ANY PAIN AT THIS TIME. ORIENTED PT TO ROOM AND SAFETY. BED IN LOWEST POSITION, CALL LIGHT WITHIN REACH. WILL CONTINUE TO MONITOR.
[2019-02-06 04:00] VITALS: BP 109/62
[2019-02-06] MEDS: GABAPENTIN 100 MG CAP PO SCH ×3 (05:31→20:49)
[2019-02-06] MEDS: PANTOPRAZOLE 40 MG TABEC PO SCH (05:31)
--- NOTE | 2019-02-06 05:34 | NUR ---
ADMINISTERED SCHEDULED MEDICATIONS, PATIENT TOLERATED WELL. BED IN LOWEST POSITION, CALL LIGHT WITHIN REACH. WILL CONTINUE TO MONITOR.
[2019-02-06] MEDS: BLOOD GLUCOSE MONITORING 1 DEV DEV FS SCH ×4 (06:11→21:09)
[2019-02-06 06:49] LABS: BASOPHILS % (AUTO) 0.3 % (0.0-2.0); EOSINOPHILS # (AUTO) 0.1 K/uL (0-0.4); HEMATOCRIT 24.4 % (36-48); HEMOGLOBIN 8.2 g/dL (12.0-16.0); LYMPHOCYTES # (AUTO) 0.7 K/uL (2.5-16.5); LYMPHOCYTES % (AUTO) 11.8 % (20.5-51.1); MEAN CORPUSCULAR HEMOGLOBIN 32 pg (27-31); MEAN CORPUSCULAR HGB CONC 34 g/dL (33-37); MEAN CORPUSCULAR VOLUME 94.1 fL (80-94); MONOCYTES # (AUTO) 0.4 K/uL (0.8-1.0); MONOCYTES % (AUTO) 6.2 % (1.7-9.3); NEUTROPHILS # (AUTO) 4.9 K/uL (1.8-7.7); NEUTROPHILS % (AUTO) 80.7 % (42.2-75.2); PLATELET COUNT (AUTO) 69 K/uL (140-450); RED BLOOD CELL COUNT(AUTO) 2.59 MIL/uL (4.20-5.40); RED CELL DISTRIBUTION WIDTH 17.1 % (11.6-13.7); WHITE BLOOD COUNT (AUTO) 6.1 K/uL (4.8-10.8)
--- NOTE | 2019-02-06 07:15 | NUR ---
RECEIVED REPORT FROM BLACK OXIDE COATING EQUIPMENT TENDER NURSE. PATIENT LYING DOWN IN BED SLEEPING, AROUSABLE BY VOICE. NO DISTRESS NOTED. DENIES ANY PAIN. RESPIRATIONS EVEN, UNLABORED, ON ROOM AIR. AAOX4, CALM, COOPERATIVE, SKIN COLOR APPROPRIATE TO ETHNICITY, WARM TO TOUCH. SKIN INTACT. IV SITE INTACT, PATENT AND ON SALINE LOCK. ABDOMEN SOFT, NON-DISTENDED. NO BLEEDING NOTED AT THIS TIME. REVIEWED PLAN OF CARE WITH PATIENT. PATIENT VERBALIZED UNDERSTANDING. SAFETY MEASURES IN PLACE, CALL LIGHT WITHIN REACH. WILL CONTINUE TO MONITOR.
[2019-02-06 07:30] LABS: ANION GAP 14.5 (8-16); CARBON DIOXIDE 22.2 mmol/L (21-32); CREATININE 0.5 mg/dL (0.6-1.3); POTASSIUM 3.7 mmol/L (3.5-5.1)
[2019-02-06 07:37] LABS: MAGNESIUM 1.7 mg/dL (1.8-2.4)
[2019-02-06 08:00] VITALS: BP 95/52
[2019-02-06] MEDS: TACROLIMUS 0.5 MG CAP PO SCH ×2 (08:36→20:52)
[2019-02-06] MEDS: POTASSIUM CHLORIDE 8 MEQ TABER PO SCH ×3 (08:36→16:26)
[2019-02-06] MEDS: ATORVASTATIN 20 MG TAB PO SCH (08:36)
[2019-02-06] MEDS: ACYCLOVIR 800 MG TAB PO SCH ×2 (08:37→20:49)
[2019-02-06] MEDS: HYDROCORTISONE 2.5% CRM 30 GM TUBE TP SCH ×3 (08:37→20:53)
--- NOTE | 2019-02-06 09:30 | NUR ---
PATIENT SITTING IN BED. NO DISTRESS NOTED. DENIES ANY PAIN. SCHEDULED MEDICATIONS DUE GIVEN. WILL CONTINUE TO MONITOR.
[2019-02-06 12:00] VITALS: BP 103/63
[2019-02-06] MEDS ORDERED: MEDR10TA PO (12:30)
[2019-02-06] MEDS: INSULIN LISPRO SLIDING SCALE 100 UNITS/ML VIAL SUBQ PRN ×3 (12:34→21:08)
--- NOTE | 2019-02-06 12:40 | NUR ---
PATIENT SITTING DOWN IN BED WITH LUNCH TRAY IN FRONT. NO DISTRESS NOTED. DENIES ANY PAIN. SCHEDULED MEDICATIONS DUE GIVEN. WILL CONTINUE TO MONITOR.
--- NOTE | 2019-02-06 14:45 | NUR ---
PATIENT SITTING DOWN IN BED TALKING WITH FAMILY MEMBERS AT BEDSIDE. NO DISTRESS NOTED. CONDITION UNCHANGED. WILL CONTINUE TO MONITOR.
[2019-02-06 16:00] VITALS: BP 103/70
[2019-02-06] MEDS ORDERED: diphenhydrAMINE 50 MG/ML VIAL IVP SCH (16:30)
--- NOTE | 2019-02-06 16:30 | NUR ---
PATIENT SITTING DOWN IN BED TALKING WITH FAMILY MEMBERS AT BEDSIDE. NO DISTRESS NOTED. DENIES ANY PAIN. SCHEDULED MEDICATIONS DUE GIVEN. WILL CONTINUE TO MONITOR.
--- NOTE | 2019-02-06 18:37 | NUR ---
PATIENT LYING DOWN IN BED WATCHING TV. CONDITION UNCHANGED. WILL CONTINUE TO MONITOR.
[2019-02-06] MEDS ORDERED: MAG SULF 2000 MG/WATER PREMIX 50 ML IV SCH (18:45)
--- NOTE | 2019-02-06 19:25 | NUR ---
GAVE TO REPORT TO NIGHT NURSE FOR CONTINUITY OF CARE. PATIENT IN STABLE CONDITION.
--- NOTE | 2019-02-06 19:26 | NUR ---
RECEIVED REPORT FROM DAY RN. PATIENT RESTING COMFORTABLY IN BED. NO DISTRESS NOTED. DENIES ANY PAIN. RESPIRATIONS EVEN, UNLABORED, ON ROOM AIR. AAOX4, CALM, COOPERATIVE, SKIN COLOR APPROPRIATE TO ETHNICITY, WARM TO TOUCH. SKIN INTACT. IV SITE INTACT, PATENT AND ON MG RIDER 25ML/H. ABDOMEN SOFT, NON-DISTENDED. PT STATES STILL GETS SOME SPOTTING. WHICH IS NORMAL FOR PROCEDURE. REVIEWED PLAN OF CARE WITH PATIENT. PATIENT VERBALIZED UNDERSTANDING. SAFETY MEASURES IN PLACE, CALL LIGHT WITHIN REACH. WILL CONTINUE TO MONITOR.
[2019-02-06 20:00] VITALS: BP 97/67
--- NOTE | 2019-02-06 20:49 | NUR ---
VITAL SIGNS ARE WITHIN NORMAL LIMITS. DARSHAN MEDICATIONS GIVEN. BLOOD SUGAR IS 271 ADMINISTERED DARSHAN LANTUS AND 6U OF HUMALOG. BEDTIME SNACK AT BEDSIDE. REMOVED IV INFILTRATED. IV CATH IS INTACT. GAVE WARM COMPRESS WILL KEEP ARM ELEVATE. PT REFUSED NEW IV AT THIS TIME. PT WOULD'VE BEEN IV SL. PT STATES WILL ALLOW PLACED OF NEW IV IF NEEDED. SAFETY MEASURES ARE IN PLACE. CALL LIGHT IS WITHIN REACH. WILL CONTINUE TO MONITOR.
[2019-02-06] MEDS: INSULIN LANTUS 100 UNITS/ML 10 ML VIAL SUBQ SCH (21:09)
[2019-02-06] MEDS: ACETAMINOPHEN 325 MG TAB PO PRN (21:29)
--- NOTE | 2019-02-06 21:29 | NUR ---
ADMINISTERED TYLENOL FOR PAIN. ALL NEEDS MET AT THIS TIME.
--- NOTE | 2019-02-06 23:50 | NUR ---
VITAL SIGNS ARE WITHIN NORMAL LIMITS. ALL NEEDS MET AT THIS TIME. CALL LIGHT IS WITHIN REACH. WILL CONTINUE TO MONITOR.
[2019-02-07] VITALS: BP 105/63
--- NOTE | 2019-02-07 02:04 | NUR ---
PT IS SLEEPING COMFORTABLY IN BED. CHEST RISE AND FALL. BED ALARM ON AND CALL LIGHT IS WITHIN REACH.
[2019-02-07 04:00] VITALS: BP 98/48
--- NOTE | 2019-02-07 04:19 | NUR ---
VITAL SIGNS ARE WITHIN NORMAL LIMITS. SAFETY MEASURES ARE IN PLACE. WILL CONTINUE TO MONITOR.
[2019-02-07] MEDS: GABAPENTIN 100 MG CAP PO SCH ×2 (05:40→12:10)
[2019-02-07] MEDS: PANTOPRAZOLE 40 MG TABEC PO SCH (05:41)
[2019-02-07 06:18] LABS: ANION GAP 11.9 (8-16); CARBON DIOXIDE 26.7 mmol/L (21-32); CREATININE 0.5 mg/dL (0.6-1.3); POTASSIUM 3.6 mmol/L (3.5-5.1)
[2019-02-07] MEDS: BLOOD GLUCOSE MONITORING 1 DEV DEV FS SCH ×2 (06:30→11:21)
[2019-02-07] MEDS: INSULIN LISPRO SLIDING SCALE 100 UNITS/ML VIAL SUBQ PRN ×2 (06:30→11:28)
--- NOTE | 2019-02-07 06:30 | NUR ---
BG 186 2 UNITS OF COVERAGE GIVEN. ALL SAFETY MEASURES ARE IN PLACE. SNACK AT BEDSIDE. WILL CONTINUE TO MONITOR.
[2019-02-07 07:08] LABS: BASOPHILS % (AUTO) 0.2 % (0.0-2.0); EOSINOPHILS % (AUTO) 0.7 % (0.0-4.0); HEMATOCRIT 26.4 % (36-48); HEMOGLOBIN 8.9 g/dL (12.0-16.0); LYMPHOCYTES # (AUTO) 0.9 K/uL (2.5-16.5); LYMPHOCYTES % (AUTO) 14.5 % (20.5-51.1); MEAN CORPUSCULAR HEMOGLOBIN 32 pg (27-31); MEAN CORPUSCULAR HGB CONC 34 g/dL (33-37); MEAN CORPUSCULAR VOLUME 95.1 fL (80-94); MONOCYTES # (AUTO) 0.3 K/uL (0.8-1.0); MONOCYTES % (AUTO) 5.9 % (1.7-9.3); NEUTROPHILS # (AUTO) 4.6 K/uL (1.8-7.7); NEUTROPHILS % (AUTO) 78.7 % (42.2-75.2); PLATELET COUNT (AUTO) 73 K/uL (140-450); RED BLOOD CELL COUNT(AUTO) 2.77 MIL/uL (4.20-5.40); RED CELL DISTRIBUTION WIDTH 17.6 % (11.6-13.7); WHITE BLOOD COUNT (AUTO) 5.9 K/uL (4.8-10.8)
--- NOTE | 2019-02-07 07:20 | NUR ---
PT RECEIVED FROM NIGHT NURSE. PT SLEEPING IN BED. NO SIGN OF ACUTE DISTRESS AT THIS TIME. WILL CONTINUE TO MONITOR FOR CHANGES IN CONDITION.
--- NOTE | 2019-02-07 07:25 | NUR ---
BEDSIDE REPORT GIVEN TO QUINTEN MAST. PT ENDORSED IN STABLE CONDITION.
[2019-02-07 08:00] VITALS: BP 103/64
[2019-02-07] MEDS ORDERED: MEDR10TA PO (08:22)
[2019-02-07] MEDS ORDERED: FERR324T11 PO (08:24)
[2019-02-07] MEDS ORDERED: DOCU-299 PO (08:24)
[2019-02-07] MEDS ORDERED: medroxyPROGESTERone 10 MG TAB PO SCH (09:00)
--- NOTE | 2019-02-07 09:30 | NUR ---
Pt sitting in bed. Pt received morning medications with education. Pt tolerated medication administration. Pt stated when she got up to go to the restroom, her vaginal drainage increased from before and is more red than before. Will continue to monitor vaginal drainage.
[2019-02-07] MEDS: ACYCLOVIR 800 MG TAB PO SCH (09:34)
[2019-02-07] MEDS: TACROLIMUS 0.5 MG CAP PO SCH (09:35)
[2019-02-07] MEDS: ATORVASTATIN 20 MG TAB PO SCH (09:35)
[2019-02-07] MEDS: POTASSIUM CHLORIDE 8 MEQ TABER PO SCH ×2 (09:36→12:10)
[2019-02-07] MEDS: HYDROCORTISONE 2.5% CRM 30 GM TUBE TP SCH (09:36)
--- NOTE | 2019-02-07 11:29 | NUR ---
Pt sleeping. Pt awoken by voice to administer ordered insulin coverage. Pt was told discharge paperwork would be started soon. Pt stated that her could not come to get her until around 4 PM, depending on traffic. Will continue to monitor pt for changes in condition and discharge paperwork will be started.
[2019-02-07 12:05] VITALS: BP 110/68
[2019-02-07 12:28] VITALS: BP 110/68
[2019-02-07] MEDS ORDERED: HYDROCORTISONE 2.5% OINT 30 GM TUBE TP SCH (21:00)
== END 2019-02-07 16:45 | disposition home or self-care (01) | DRG 517 ==
LOC: MED 19:47 → MTU 22:53
PROVIDERS: ADMIT General Practice; ATTEND General Practice
PROC: 0UDB8ZZ Extraction of Endometrium, Via Natural or Artificial Opening Endoscopic (ICD-10-PCS; 2019-02-05)
PROC: 30233N1 Transfusion of Nonautologous Red Blood Cells into Peripheral Vein, Percutaneous Approach (ICD-10-PCS; principal; 2019-02-05 09:00)
DX: N92.0 Excessive and frequent menstruation with regular cycle (principal); E43 Unspecified severe protein-calorie malnutrition; C91.00 Acute lymphoblastic leukemia not having achieved remission; Z94.81 Bone marrow transplant status; D69.6 Thrombocytopenia, unspecified; E11.42 Type 2 diabetes mellitus with diabetic polyneuropathy; D62 Acute posthemorrhagic anemia; E11.65 Type 2 diabetes mellitus with hyperglycemia; E87.1 Hypo-osmolality and hyponatremia; N93.8 Other specified abnormal uterine and vaginal bleeding; E78.5 Hyperlipidemia, unspecified; Z96.641 Presence of right artificial hip joint; Z96.642 Presence of left artificial hip joint; E66.9 Obesity, unspecified; Z68.31 Body mass index [BMI] 31.0-31.9, adult; Z79.4 Long term (current) use of insulin; Z79.899 Other long term (current) drug therapy; Z92.21 Personal history of antineoplastic chemotherapy; Z92.3 Personal history of irradiation
CPT/HCPCS: 36415; 71045; 76856; 80048; 80053; 80305; 81001; 81025; 82150; 82948; 83036; 83605; 83690; 83735; 83880; 84100; 84439; 84443; 84484; 85025; 85610; 85730; 86886; 86900; 86901; 86920; 87081; 87086; 88305; 93005; 93925; 96361; 96372; 96374; 99285; J1200; J1815; J2001; J2250; J2704; J3475; J7030; J7507; P9016; Q0092

== ENCOUNTER 2019-03-30 16:58 | Inpatient (IN) | payer MEDICAID ==
[~2019-03-30] VITALS: Ht 162.6 cm; Wt 80.7 kg
[~2019-03-30 16:58] MED LIST changes: -APIX5TAB PO; +BEN50 PO; +DOCU-299 PO; +ELTR25TA PO; +FERR324T11 PO; +LETE480T PO; -LISI2.5T12 PO; +ONDA8TAB PO; +POTA8TER12 PO; -PRED20TA5 PO; +PRO.5 PO; +SULF-59 PO; +TRAM50TA1 PO; +[UNRECOGNIZED DRUG - CODE] PO; +[UNRECOGNIZED DRUG - CODE] PO; +[UNRECOGNIZED DRUG - CODE] TP
[2019-03-30 17:06] VITALS: BP 122/83
--- NOTE | 2019-03-30 17:29 | NUR ---
43/F BIB SELF C/O VAGINAL BLEEDING X3 WKS, +DIZZINESS, + HEADACHE, + DIARRHEA, REFERRED BY DR. PHILIP FOR SURGERY TOMORROW. HX OF CANCER. NARCISA. HIP REPLACEMENT, D&C X2, DM. PATIENT STATES PAIN OF 8/10 AT THIS TIME. PATIENT POSITIONED FOR COMFORT; HOB ELEVATED; BEDRAILS UP X1; BED DOWN. ER MD MADE AWARE OF PT STATUS.
--- NOTE | 2019-03-30 17:35 | NUR ---
LAB AT BEDSIDE
--- NOTE | 2019-03-30 17:39 | NUR ---
Patient being evaluated by DR BATRES at bedside.
[2019-03-30] MEDS ORDERED: MORPHINE SULFATE 4 MG/ML SYR IVP ONE (17:45)
[2019-03-30] MEDS ORDERED: NACL 0.9% 1,000 ML IV ONE ×3 (17:45→19:00)
[2019-03-30] MEDS ORDERED: ONDANSETRON 4 MG/2 ML VIAL IVP ONE (17:45)
[2019-03-30 18:08] LABS: HEMATOCRIT 31.8 % (36-48); HEMOGLOBIN 10.5 g/dL (12.0-16.0); MEAN CORPUSCULAR HEMOGLOBIN 29 pg (27-31); MEAN CORPUSCULAR HGB CONC 33 g/dL (33-37); MEAN CORPUSCULAR VOLUME 88.5 fL (80-94); PLATELET COUNT (AUTO) 34 K/uL (140-450); RED BLOOD CELL COUNT(AUTO) 3.59 MIL/uL (4.20-5.40); RED CELL DISTRIBUTION WIDTH 17.4 % (11.6-13.7)
[2019-03-30 18:15] LABS: PROTHROMBIN TIME 9.7 secs (10.8-13.4)
[2019-03-30 18:21] LABS: CARBON DIOXIDE 19.8 mmol/L (21-32); POTASSIUM 3.8 mmol/L (3.5-5.1)
[2019-03-30 18:22] LABS: ALBUMIN 3.2 g/dL (3.4-5.0); CREATININE 1.1 mg/dL (0.6-1.3); TOTAL BILIRUBIN 0.7 mg/dL (0.0-1.0)
[2019-03-30 18:25] LABS: BILIRUBIN,URINE 3+ (NEGATIVE); BLOOD, URINE 3+ (NEGATIVE); LEUKOCYTE ESTERASE ,URINE TRACE (NEGATIVE); NITRITE, URINE NEGATIVE (NEGATIVE); PH,URINE 5.5 (5.0-9.0); UGLUCOSE NEGATIVE (NEGATIVE)
[2019-03-30 18:26] LABS: APPEARANCE,URINE BLOODY (CLEAR); COLOR,URINE RED (YELLOW)
[2019-03-30 18:27] LABS: RBC,URINE TOO NUMEROUS TO COUN /HPF (0-5); WBC,URINE TOO MANY TO COUNT /HPF (0-5)
[2019-03-30 18:31] LABS: WHITE BLOOD COUNT (AUTO) 52.5 K/uL (4.8-10.8)
[2019-03-30] MEDS ORDERED: INSULIN REGULAR, HUMAN 100 UNIT/ML VIAL SUBQ ONE (18:35)
[2019-03-30] MEDS ORDERED: cefTRIAXone 1,000 MG VIAL ONE (18:39)
[2019-03-30] MEDS ORDERED: ONDANSETRON 4 MG/2 ML VIAL IM/IVP PRN (18:45)
[2019-03-30] MEDS ORDERED: DOCUSATE SODIUM 100 MG GELCAP PO PRN (18:45)
[2019-03-30] MEDS ORDERED: HYDROcodone/APAP 7.5/325 MG 1 TAB PO PRN (18:45)
[2019-03-30 18:48] LABS: BASOPHILS % (MANUAL) 0 % (0-2); EOSINOPHILS % (MANUAL) 0 % (0-4); LYMPHOCYTES % (MANUAL) 43 % (20-46); METAMYELOCYTES % 3 % (0-0); MONOCYTES % (MANUAL) 2 % (5-12); MYELOCYTES % 4 % (0-0)
[2019-03-30 18:49] LABS: BLASTS, MANUAL % 10 % (0-0); PROMYELOCYTES % 0 % (0-0)
--- NOTE | 2019-03-30 19:08 | NUR ---
Pt report given to LUIS RN . Transfer of care at this time.
--- NOTE | 2019-03-30 19:08 | NUR ---
RECEIVED REPORT FROM PRO SMALLWOOD. PT IN BED RESTING, IN STABLE CONDITION, WILL CONTINUE TO MONITOR CLOSELY.
--- NOTE | 2019-03-30 19:57 | NUR ---
Ultrasound at bedside.
--- NOTE | 2019-03-30 20:30 | NUR ---
RECEIVED FROM ER PER CRISTINE AWAKE AND ALERT. ABLE TO VERBALIZE NEEDS WELL. NO SOB. NO PAIN COMPLAINT AT THIS TIME. PT. DX. OF SEPSIS, UTI AND MENORRHAGIA. IVF SITE TO RIGHT FOREARM #18 . AFEBRILE. CARE PLANS FOR THE NIGHT DISCUSSED WITH HER AND CALL LIGHT USE EXPLAINED. SKIN INTACT. ENCOURAGED TO CALL FOR ANY HELP SHE MAY NEED OR IF IN PAIN. "OK"
[2019-03-30 20:34] LABS: MAGNESIUM 1.3 mg/dL (1.8-2.4)
[2019-03-30 20:37] LABS: CHOL/HDL RATIO 6.9 (1-4.5); THYROID STIMULATING HORMONE 4.5 uIU/mL (0.34-3.74)
--- NOTE | 2019-03-30 20:40 | NUR ---
PATIENT ADMITTED UNDER THE CARE OF DR. SANDEEP LANDA TO TELEMETRY ROOM 121A. BELONGINGS LIST COMPLETED, TRANSFERED VIA GURNEY IN STABLE CONDITION, BEDSIDE REPORT GIVEN TO PRO MENDIOLA.
[2019-03-30 21:37] VITALS: BP 132/82
[2019-03-30] MEDS ORDERED: MAG SULF 2000 MG/WATER PREMIX 100 ML IV SCH (21:50)
[2019-03-30] MEDS ORDERED: LETE480T PO ×2 (21:58→22:22)
[2019-03-30] MEDS ORDERED: MEDR10TA PO (21:58)
[2019-03-30] MEDS ORDERED: LACTULOSE 20 GM/30 ML UDC PO SCH (22:30)
[2019-03-30] MEDS: NACL 0.9% 1,000 ML IV SCH (22:49)
[2019-03-30] MEDS ORDERED: [UNRECOGNIZED DRUG - CODE] PO (22:51)
[2019-03-30] MEDS: BLOOD GLUCOSE MONITORING 1 DEV DEV FS SCH (23:01)
--- NOTE | 2019-03-30 23:41 | NUR ---
OB AND INFECTION MD IN HERE TO SEE PT. PT. WHEELED TO CT SCAN DEPT. FOR CT OF HEAD RT C/O HEADACHES IN PAST DAYS AND AT PRESENT.
[2019-03-30] MEDS ORDERED: ZOLPIDEM 5 MG TAB ONE (23:59)
[2019-03-31] VITALS: BP 129/88
[2019-03-31] MEDS ORDERED: ZOLPIDEM 5 MG TAB PO SCH
[2019-03-31] MEDS: MORPHINE SULFATE 2 MG/ML SYR IVP PRN ×2 (00:01→23:42)
[2019-03-31 00:47] LABS: HEMOGLOBIN 8.1 g/dL (12.0-16.0)
[2019-03-31] MEDS: NACL 0.9% 1,000 ML IV SCH ×4 (00:57→20:15)
[2019-03-31 01:01] LABS: HEMATOCRIT 25.3 % (36-48); MEAN CORPUSCULAR HEMOGLOBIN 29 pg (27-31); MEAN CORPUSCULAR HGB CONC 32 g/dL (33-37); RED BLOOD CELL COUNT(AUTO) 2.84 MIL/uL (4.20-5.40); RED CELL DISTRIBUTION WIDTH 17.1 % (11.6-13.7)
--- NOTE | 2019-03-31 02:06 | NUR ---
SLEEPING AT THIS TIME. CALL LIGHT WITH IN REACH. A/O X 4 AND ROM X 4 . TELEMETRY MONITORING.
--- NOTE | 2019-03-31 04:10 | NUR ---
PT. SPECIMEN STOOL SENT TO LAB. ORDERED FOR C-DIFF AND OVA. MRSA NARES SENT AND COLLECTED TOO.
[2019-03-31] MEDS: GABAPENTIN 100 MG CAP PO SCH ×3 (05:07→20:16)
[2019-03-31] MEDS: BLOOD GLUCOSE MONITORING 1 DEV DEV FS SCH ×4 (05:12→20:19)
[2019-03-31 05:23] VITALS: BP 99/70
[2019-03-31 05:35] LABS: WHITE BLOOD COUNT (AUTO) 46.8 K/uL (4.8-10.8)
[2019-03-31 05:36] LABS: PLATELET COUNT (AUTO) 20 K/uL (140-450)
[2019-03-31 05:37] LABS: BLASTS, MANUAL % 8 % (0-0); LYMPHOCYTES % (MANUAL) 48 % (20-46); MONOCYTES % (MANUAL) 4 % (5-12); MYELOCYTES % 3 % (0-0)
--- NOTE | 2019-03-31 06:14 | NUR ---
SLEEPING AT THIS TIME. BLOOD SUGAR PER FINGERSTICK 99 MG/DL . NO COMPLAINTS OF ANY PAIN . ISOLATION PRECAUTION RT R/O C-DIFF STOOL.
[2019-03-31 07:51] LABS: ANION GAP 14.4 (8-16); CARBON DIOXIDE 22.3 mmol/L (21-32); CREATININE 0.7 mg/dL (0.6-1.3); MAGNESIUM 1.7 mg/dL (1.8-2.4); POTASSIUM 3.7 mmol/L (3.5-5.1)
[2019-03-31 08:18] LABS: PHOSPHORUS 0.7 mg/dL (2.5-4.9)
--- NOTE | 2019-03-31 08:21 | NUR ---
PATIENT HAS BEEN SCREENED AND CATEGORIZED HIGH NUTRITION RISK. PATIENT WILL BE SEEN WITHIN 1-2 DAYS OF ADMISSION. 03/31/19-04/01/[address]
[2019-03-31] MEDS ORDERED: medroxyPROGESTERone 10 MG TAB PO SCH (09:00)
[2019-03-31] MEDS: ACYCLOVIR 200 MG CAP PO SCH ×2 (09:43→20:16)
[2019-03-31] MEDS: medroxyPROGESTERone 10 MG TAB PO SCH (09:44)
[2019-03-31] MEDS: metroNIDAZOLE 500 MG TAB PO SCH ×3 (09:44→17:27)
[2019-03-31] MEDS: TACROLIMUS 0.5 MG CAP PO SCH ×2 (09:45→20:18)
[2019-03-31] MEDS: PANTOPRAZOLE 40 MG TABEC PO SCH (09:45)
[2019-03-31] MEDS: ATORVASTATIN 20 MG TAB PO SCH (09:46)
[2019-03-31] MEDS: SODIUM PHOS / POTASSIUM PHOS 1 PKT PDR PO SCH ×2 (09:47→20:17)
[2019-03-31] MEDS: INSULIN LANTUS 100 UNITS/ML 10 ML VIAL SUBQ SCH (10:00)
[2019-03-31] MEDS ORDERED: SODIUM PHOS / POTASSIUM PHOS 1 PKT PDR PO ONE (10:20)
[2019-03-31] MEDS ORDERED: MAGNESIUM OXIDE 400 MG TAB PO SCH (10:40)
[2019-03-31] MEDS ORDERED: POTASSIUM PHOSPHATE 15 MM in NACL 0.9% 250 ML IV SCH (11:00)
[2019-03-31 13:11] VITALS: BP 139/111
--- NOTE | 2019-03-31 14:27 | NUR ---
CALLED [facility] [phone] SPOKE WITH [facility] , NOTIFIED HER PT HAS ACCEPTING DR MARTEL.PER [facility] THEY ARE FAMILIAR WITH THE PATIENT,AND REQUESTED ALL THE INFO TO BE FAXED . FAXED ALL THE INFORMATION AND CM TO FOLLOW
[2019-03-31 16:00] VITALS: BP 130/80
--- NOTE | 2019-03-31 16:59 | NUR ---
CALLED [facility] SPOKE WITH [facility]MISS[facility], RECEIVED THE FAX , WILL CALL WHEN BED AVAILABLE
[2019-03-31] MEDS: FERROUS SULFATE 325 MG TABEC PO SCH (17:27)
--- NOTE | 2019-03-31 19:41 | NUR ---
RECEIVED FROM AM RN IN BED SITTING UP AND WATCHING TV. NO COMPLAINTS OF PAIN AT THIS TIME. PT. ABLE TO VERBALIZE NEEDS WELL. NO SOB. CARE PLANS FOR THE NIGHT DISCUSSED WITH HER AND CALL LIGHT WITH IN REACH . IVF SITE INTACT AND NO INFILTRATION.
[2019-03-31 20:00] VITALS: BP 136/89
[2019-03-31] MEDS: INSULIN LISPRO SLIDING SCALE 100 UNITS/ML VIAL SUBQ PRN (21:54)
[2019-03-31 23:36] VITALS: BP 146/93
--- NOTE | 2019-03-31 23:47 | NUR ---
MEDICATED WITH MORPHINE 1 MG. IVP REQUESRTED BY PT. AWAKE AND ALERT. ABLE TO VERBALIZE NEEDS WELL. CALL LIGHT WITH IN REACH.
[2019-04-01] MEDS: NACL 0.9% 1,000 ML IV SCH ×3 (01:02→11:34)
--- NOTE | 2019-04-01 02:00 | NUR ---
SLEEPING. NO RESTLESSNESS.
--- NOTE | 2019-04-01 04:10 | NUR ---
PT. AWAKE AND JUST CAME BACK FROM RESTROOM INSIDE ROOM TO URINATE. NO COMPLAINTS DONE.
[2019-04-01 04:30] VITALS: BP 118/76
[2019-04-01] MEDS: GABAPENTIN 100 MG CAP PO SCH ×2 (05:54→15:17)
[2019-04-01] MEDS: BLOOD GLUCOSE MONITORING 1 DEV DEV FS SCH ×3 (05:57→16:44)
--- NOTE | 2019-04-01 05:59 | NUR ---
SLEEPING WELL. BLOOD SUGAR CHECK PER FINGERSTICK 95 MG/DL. NO COMPLAINTS DONE. WENT BACK TO SLEEP AFTER TEST. CALL LIGHT WITH IN REACH.
[2019-04-01] MEDS: ACETAMINOPHEN 325 MG TAB PO PRN ×2 (06:33→15:18)
[2019-04-01] MEDS ORDERED: SIMETHICONE 80 MG TAB.CHEW PO PRN (06:45)
--- NOTE | 2019-04-01 07:35 | NUR ---
ENDORSED TO AM RN FOR CONTINUITY OF CARE. ALERT , ORIENTED X 4. ROM X 4. NO COMPLAINTS DONE.
[2019-04-01 08:00] VITALS: BP 135/84
[2019-04-01 10:29] LABS: HEMATOCRIT 23.6 % (36-48); HEMOGLOBIN 7.6 g/dL (12.0-16.0); MEAN CORPUSCULAR HEMOGLOBIN 29 pg (27-31); MEAN CORPUSCULAR HGB CONC 32 g/dL (33-37); MEAN CORPUSCULAR VOLUME 88.2 fL (80-94); RED BLOOD CELL COUNT(AUTO) 2.67 MIL/uL (4.20-5.40); RED CELL DISTRIBUTION WIDTH 17.2 % (11.6-13.7)
[2019-04-01 10:48] LABS: ANION GAP 14.7 (8-16); CARBON DIOXIDE 21.9 mmol/L (21-32); CREATININE 0.7 mg/dL (0.6-1.3); POTASSIUM 3.6 mmol/L (3.5-5.1)
[2019-04-01 10:52] LABS: MAGNESIUM 1.2 mg/dL (1.8-2.4)
[2019-04-01 10:54] LABS: PHOSPHORUS 0.9 mg/dL (2.5-4.9)
[2019-04-01] MEDS: metroNIDAZOLE 500 MG TAB PO SCH ×3 (11:02→16:31)
[2019-04-01] MEDS: FERROUS SULFATE 325 MG TABEC PO SCH ×2 (11:02→16:31)
[2019-04-01] MEDS: ATORVASTATIN 20 MG TAB PO SCH (11:04)
[2019-04-01] MEDS: SODIUM PHOS / POTASSIUM PHOS 1 PKT PDR PO SCH (11:04)
[2019-04-01] MEDS: PANTOPRAZOLE 40 MG TABEC PO SCH (11:05)
[2019-04-01] MEDS: ACYCLOVIR 200 MG CAP PO SCH (11:06)
[2019-04-01] MEDS: TACROLIMUS 0.5 MG CAP PO SCH (11:30)
[2019-04-01] MEDS: medroxyPROGESTERone 10 MG TAB PO SCH (11:40)
[2019-04-01 12:00] VITALS: BP 137/82
[2019-04-01] MEDS ORDERED: MAG SULF 2000 MG/WATER PREMIX 50 ML IV SCH (12:00)
--- NOTE | 2019-04-01 12:00 | NUR ---
I SPOKE TO DR WEIR ABOUT HOLDING THE [place] DUE TO LOW BS PER PT. HE EVALUTATED AND STATED WE COULD GIVE THIS AFTERNOON.
[2019-04-01 12:06] LABS: WHITE BLOOD COUNT (AUTO) 50.4 K/uL (4.8-10.8)
[2019-04-01 12:07] LABS: PLATELET COUNT (AUTO) 22 K/uL (140-450)
[2019-04-01 12:12] LABS: LYMPHOCYTES % (MANUAL) 32 % (20-46); METAMYELOCYTES % 5 % (0-0); MONOCYTES % (MANUAL) 8 % (5-12)
[2019-04-01 12:13] LABS: BLASTS, MANUAL % 7 % (0-0)
[2019-04-01] MEDS ORDERED: POTASSIUM PHOSPHATE 15 MM in NACL 0.9% 250 ML IV SCH (13:00)
--- NOTE | 2019-04-01 14:23 | NUR ---
04/01/19 RD INITIAL ASSESSMENT COMPLETED PLEASE REFER TO NUTRITION ASSESSMENT UNDER CARE ACTIVITY FOR ESTIMATED NUTRITIONAL NEEDS. 1. CONTINUE CCHO 60GM DIET TOLERATED 2. IF PO INTAKE <75% RECOMMEND GLUCERNA BID 3.RECOMMENDED TO CONTINUE EATING PROTEIN AND IRON RICH FOODS. PT VERBALIZED UNDERSTANDING 4. RD TO FOLLOW-UP 5-7 DAYS, LOW RISK PETER ESTRELLA, RD
[2019-04-01] MEDS: INSULIN LANTUS 100 UNITS/ML 10 ML VIAL SUBQ SCH (15:08)
[2019-04-01 16:00] VITALS: BP 119/76
[2019-04-01] MEDS: INSULIN LISPRO SLIDING SCALE 100 UNITS/ML VIAL SUBQ PRN (16:46)
[2019-04-01] MEDS ORDERED: CYCLOBENZAPRINE 10 MG TAB PO SCH (17:00)
[2019-04-01] MEDS ORDERED: CYCL10TA14 PO (17:05)
[2019-04-01] MEDS ORDERED: ROC250I IV (17:05)
[2019-04-01] MEDS ORDERED: SIME80CT27 PO (17:05)
[2019-04-01] MEDS ORDERED: MEDR10TA33 PO (17:05)
[2019-04-01] MEDS ORDERED: FER325 PO (17:05)
[2019-04-01] MEDS ORDERED: METR500T1 PO (17:05)
--- NOTE | 2019-04-01 17:44 | NUR ---
i CALLED REPORT TO TONEY MAST OF [facility] FOR REPORT. I GAVE HIM LABS, HISTORY, HER TREATMENT HERE. THE PT HAD SIGNED CONSENT FOR PLT TRANFUSION BUT IT WAS PUT ON HOLD FOR THE TRANSFER. THE PT IS IN GOOD SPIRITS ABOUT GOING NOW.
--- NOTE | 2019-04-01 19:30 | NUR ---
RECEIVED BEDSIDE REPORT FROM DAY SHIFT NURSE PT STABLE, NO DISTRESS NOTED, IV TO R FA 20G PATENT INTACT, INFUSING WELL, PT ON ROOM AIR NO SOB NOTED, PT AWAITING FOR TRANSPORT TO [facility], ALL DISCHARGE PAPER SIGNED, TELE MONITOR ALREADY TAKEN OFF, PT RESTING, NO DISTRESS NOTED, CALL LIGHT WITHIN REACH, WILL CONTINUE TO MONITOR.
[2019-04-01 20:00] VITALS: BP 120/80
--- NOTE | 2019-04-01 20:35 | NUR ---
PT LEFT UNIT IN STABLE CONDITION WITH [facility] STAFF TO [facility].
[2019-04-01 22:22] LABS: FOLIC ACID 2.2 ng/mL (>3.0)
[2019-04-02] MEDS ORDERED: SODIUM PHOS / POTASSIUM PHOS 1 PKT PDR PO SCH (09:00)
== END 2019-04-01 20:35 | disposition short-term general hospital (02) | DRG 720 ==
LOC: MED 16:58 → MTU 18:42 → MMU 21:31 → MTU 03-31 04:30
PROVIDERS: ADMIT Family Medicine; ATTEND Family Medicine
DX: A41.9 Sepsis, unspecified organism (principal); E43 Unspecified severe protein-calorie malnutrition; Z94.81 Bone marrow transplant status; E72.20 Disorder of urea cycle metabolism, unspecified; D69.6 Thrombocytopenia, unspecified; C91.01 Acute lymphoblastic leukemia, in remission; E11.42 Type 2 diabetes mellitus with diabetic polyneuropathy; E11.51 Type 2 diabetes mellitus with diabetic peripheral angiopathy without gangrene; E83.39 Other disorders of phosphorus metabolism; E11.65 Type 2 diabetes mellitus with hyperglycemia; E83.42 Hypomagnesemia; N39.0 Urinary tract infection, site not specified; R65.20 Severe sepsis without septic shock; N92.0 Excessive and frequent menstruation with regular cycle; D25.9 Leiomyoma of uterus, unspecified; E78.00 Pure hypercholesterolemia, unspecified; E78.5 Hyperlipidemia, unspecified; Z96.643 Presence of artificial hip joint, bilateral; J45.909 Unspecified asthma, uncomplicated; Z68.30 Body mass index [BMI] 30.0-30.9, adult; Z79.4 Long term (current) use of insulin; Z79.899 Other long term (current) drug therapy; Z92.21 Personal history of antineoplastic chemotherapy; Z92.3 Personal history of irradiation
CPT/HCPCS: 36415; 70450; 71045; 76830; 80048; 80053; 81001; 81025; 82140; 82150; 82607; 82728; 82746; 82948; 83036; 83540; 83605; 83690; 83735; 83880; 84100; 84436; 84439; 84443; 84479; 84484; 85025; 85045; 85610; 86886; 86900; 86901; 87040; 87045; 87070; 87081; 87086; 87177; 93005; 96365; 96372; 96375; 99291; J0696; J1815; J2270; J2405; J3475; J7030; J7060; J7507; Q0092

== ENCOUNTER 2019-04-07 00:12 | Emergency (ER) | payer MEDICAID ==
[~2019-04-07] VITALS: Ht 157.5 cm; Wt 65.8 kg
[~2019-04-07 00:12] MED LIST changes: -BEN50 PO; +CYCL10TA14 PO; -DOCU-299 PO; +FER325 PO; -FERR324T11 PO; -MEDR10TA PO; +MEDR10TA33 PO; +METR500T1 PO; +ROC250I IV; +SIME80CT27 PO; -TRAM50TA1 PO; -[UNRECOGNIZED DRUG - CODE] PO; -[UNRECOGNIZED DRUG - CODE] TP
[2019-04-07 00:17] VITALS: BP 136/94
[2019-04-07 00:55] VITALS: BP 132/88
== END 2019-04-07 00:55 | disposition home or self-care (01) ==
LOC: MED 00:12
DX: L76.22 Postprocedural hemorrhage of skin and subcutaneous tissue following other procedure (principal); J45.909 Unspecified asthma, uncomplicated; Z85.6 Personal history of leukemia; Z79.899 Other long term (current) drug therapy
CPT/HCPCS: 99283